=== PATIENT | female | born 1965 | race Asian ===

== ENCOUNTER 2018-03-04 06:59 | Inpatient (IN) | payer OTHER ==
[~2018-03-04] VITALS: Ht 160 cm; Wt 53.0 kg
[2018-03-04] VITALS (23 sets, daily range): BP systolic 99–147; BP diastolic 57–95; PULSE 66–104; RESP 7–22; Ht 160 cm; Wt 53.0 kg
[~2018-03-04 06:59] MED LIST: CEFAZOLIN 1 GM/50 ML (PMX) 50 ML IVPB SCH; SOD CHLORIDE 0.9% 1,000 ML IV ONE
[2018-03-04] MEDS ORDERED: SEVOFLURANE 15 MIN ONE (07:00)
[2018-03-04] MEDS ORDERED: AMPH20TA2 PO (07:29)
[2018-03-04] MEDS ORDERED: ACETAMINOPHEN 500 MG TAB PO STA (09:33)
--- NOTE | 2018-03-04 09:33 | PREAC ---
Date/Time of Note Date/Time of Note DATE: 03/04/18 TIME: 09:32 Anesthesia Eval and Record Evaluation Time Pre-Procedure Interview DATE: 03/04/18 TIME: 09:32 Age 52 Sex female NPO: 8 hrs Preoperative diagnosis Rupture L breast implant Planned procedure Bilateral breast implants removal Past Medical History Past Medical History: Includes Pulm: Smoking Hx Surgery & Anesthesia Issues Hx of PONV Meds Anticoagulation: No Beta Nazanin within 24 hr: No Reason Beta Nazanin not given: Pt. not on B-Nazanin Reported Medications Amphet Dmd-Ahflmt-R-Amphet (Adderall) 20 Mg Tablet, 20 MG PO DAILY, TAB 03/04/18 Current Medications Cefazolin Sodium 50 ml @ 100 mls/hr PRE-OP IVPB ; Start 03/04/18 at 06:00; Stop 03/04/18 at 15:00 Sodium Chloride 1,000 ml @ 75 mls/hr [id number] ONCE IV ; Start 03/04/18 at 06:00; Stop 03/04/18 at 19:19 Meds reviewed: Yes Allergies Coded Allergies: No Known Allergy (Unverified , 03/04/18) Allergies Reviewed: Yes Labs/Studies Labs Reviewed: Reviewed by anesthesiologist Result Diagram: 03/04/18 0820 03/04/18 0820 Laboratory Tests 03/04/18 08:20 test: Negative Studies: CXR (Normal chest radiograph.) Pre-procedure Exam Last vitals Vital Signs Date Temp Pulse Resp B/P (MAP) Pulse Ox O2 O2 Flow FiO2 Time Delivery Rate 03/04/18 98.0 66 18 99/63 (75) 100 08:35 Airway: Adequate mouth opening, Adequate thyromental dist Mallampati: Mallampati II Teeth: Normal Lung: Normal Heart: Normal ASA Physical Status ASA physical status: 2 Emergency: None Planned Anesthetic General/MAC: LMA Pre-operative Attestations Prior to commencing anesthesia and surgery, the patient was re-evaluated, there was verification of: *The patient's identity *The results of appropriate recent lab work and preoperative vital signs *The above evaluation not changing prior to induction *Anesthetic plan, risk benefits, alternative and complications discussed with patient/family; questions answered; patient/family understands, accepts and wishes to proceed. DEZ PARKS Mar 04, 2018 09:33
[2018-03-04] MEDS ORDERED: CEFAZOLIN 1 GM INJ ONE (09:49)
[2018-03-04] MEDS ORDERED: PROPOFOL 40 ML ONE (09:49)
[2018-03-04] MEDS ORDERED: LIDOCAINE 2% (SDV) 5 ML INJ ONE (09:49)
[2018-03-04] MEDS ORDERED: DEXAMETHASONE 4 MG/ML 5 ML INJ ONE (09:50)
[2018-03-04] MEDS ORDERED: ONDANSETRON 4 MG INJ ONE (09:50)
[2018-03-04] MEDS ORDERED: FENTAnyl 50 MCG/ML VIAL ONE ×2 (09:50→12:39)
[2018-03-04] MEDS ORDERED: FAMOTIDINE 20 MG INJ ONE (09:50)
[2018-03-04] MEDS ORDERED: MIDAZOLAM 1 MG/ML 2 ML INJ ONE (09:50)
[2018-03-04] MEDS ORDERED: FENTAnyl 50 MCG/ML VIAL IV PRN ×2 (10:00)
[2018-03-04] MEDS ORDERED: ALBUTEROL 0.083% (NEB) 2.5 MG/3 ML AMP HHN PRN (10:00)
[2018-03-04] MEDS ORDERED: MEPERIDINE 25 MG INJ IV PRN (10:00)
[2018-03-04] MEDS ORDERED: LABETALOL HCL 20MG INJ IV PRN (10:00)
[2018-03-04] MEDS ORDERED: OXYCODONE/ACETAMINOPHEN (5/325) TAB PO PRN ×2 (10:00)
[2018-03-04] MEDS ORDERED: morphine (1 MG/ML) 10ML SYRINGE IV PRN ×2 (10:00)
[2018-03-04] MEDS ORDERED: HYDROmorphONE 1 MG/5 ML IV SYRINGE IV PRN ×2 (10:00)
[2018-03-04] MEDS ORDERED: ONDANSETRON 4 MG INJ IV PRN ×2 (10:00→14:00)
[2018-03-04] MEDS ORDERED: DIPHENHYDRAMINE 50 MG INJ IV PRN (10:00)
[2018-03-04] MEDS ORDERED: EPHEDrine 50 MG INJ ONE (11:47)
[2018-03-04] MEDS ORDERED: PHENYLephrine (100 MCG/ML) 10ML SYG ONE (11:47)
[2018-03-04] MEDS ORDERED: CLINDAMYCIN 900 MG/D5W (PMX) 50 ML IVPB ONE (12:07)
--- NOTE | 2018-03-04 13:11 | NUR ---
PACU: [facility] breast implant removal vss HOB @ semi singh position breathing with ease, bilateral breast dressing dry & intact, denies pain at this time. callled mother over the phone & given updates, Dr. Sesay @ bedside talking to patient, will continue to monitor.
--- NOTE | 2018-03-04 13:21 | PAC ---
Date/Time of Note Date/Time of Note DATE: 03/04/18 TIME: 13:21 Post-Anesthesia Notes Post-Anesthesia Note Last documented vital signs Vital Signs Date Temp Pulse Resp B/P (MAP) Pulse Ox O2 O2 Flow FiO2 Time Delivery Rate 03/04/18 98.0 66 18 99/63 (75) 100 08:35 Activity: WNL Respiratory function: WNL Cardiovascular function: WNL Mental status: Baseline Pain reasonably controlled: Yes Hydration appropriate: Yes Nausea/Vomiting absent: Yes DEZ PARKS Mar 04, 2018 13:21
[2018-03-04] MEDS ORDERED: D5W-0.45 NACL + KCL 20 MEQ 1,000 ML IV SCH (13:34)
--- NOTE | 2018-03-04 13:34 | SIPON ---
Date/Time of Note Date/Time of Note DATE: 03/04/18 TIME: 13:33 Operative Report Preoperative Diagnosis Bilateral rest pain need for bilateral breast implant removal Postoperative Diagnosis Same Operation/Procedure Performed Bilateral breast implant removal Surgeon see signature line speech language assistant Dr Dunn Anesthesia: general Estimated blood loss: 0 - 10 ml's Transfusion Required none Specimen Bilateral breast prostheses Grafts/Implants none Complications none RYAN MARCIAL MD Mar 04, 2018 13:34
[2018-03-04] MEDS ORDERED: morphine 2 MG INJ IV PRN (14:00)
[2018-03-04] MEDS ORDERED: ACETAMINOPHEN 1000MG/100ML IV 100 ML IVPB PRN (14:00)
--- NOTE | 2018-03-04 14:28 | NUR ---
PACU: Transferred patient to Room 412 B via [facility] vss HOB @ semi singh position breathing with ease, bilateral breast dressing dry & intact w/ Bias wrap around chest, denies pain, Report given to RUBEN Mcmanus
[2018-03-04] MEDS ORDERED: CEPASTAT LOZENGE MT PRN (17:30)
[2018-03-04] MEDS ORDERED: HYDROCODONE/APAP (5/325) TAB PO PRN (17:30)
--- NOTE | 2018-03-04 18:58 | NUR ---
RN EOSS: PATIENT BEEN STABLE ON MY SHIFT. V/S-WNL, NO C/O PAIN , ALL CONCERNS AND QUESTIONS ADDRESSED, ASSISTED FOR BRP NEEDED, HOURLY ROUNDING MAINTAINED, FALL PRECAUTIONS OBSERVED. CALL LIGHT AND BEDSIDE TABLE WITHIN REACH. WILL ENDORSE PLAN OF CARE TO ONCOMING RN.
--- NOTE | 2018-03-04 19:40 | RADRPT ---
Vent Rate: 62 bpm RR Interval: 0 msec TX Interval: 148 msec QRS Duration: 80 msec QT Interval: 468 msec QTC Interval: 475 msec P-R-T [place]: 61 - 81 - 74 degrees Normal sinus rhythm Possible Left atrial enlargement Anteroseptal infarct , age undetermined Abnormal ECG Electronically Signed By: Dmitriy Manley [id number]
--- NOTE | 2018-03-04 20:45 | OPR ---
DATE OF OPERATION: 03/04/2018 PREOPERATIVE DIAGNOSIS: Severe bilateral breast pain, need for bilateral breast implant removal. POSTOPERATIVE DIAGNOSIS: Severe bilateral breast pain, need for bilateral breast implant removal. PROCEDURE: Bilateral breast implant removal. ANESTHESIA: General. ANESTHESIOLOGIST: Nurse box spinner, Anny Pringle NP. SURGEON: Gregorio Sesay MD. ANODE CREW SUPERVISOR: Joaquín Dunn MD. INDICATIONS FOR PROCEDURE: The patient is a 52-year-old female, who presented with severe bilateral breast pain. Of note, she had previous breast implants twice before. MRI demonstrated evidence of p robable rupture on the right side and also the encapsulation. Based on this, she requested removal o f the implant. She consented and was scheduled for surgery. DESCRIPTION OF PROCEDURE: The patient was brought to the operating theater, placed under general ane sthesia. The breasts were prepped and draped bilaterally in the usual sterile fashion. Attention wa s first directed to the right side. A periareolar incision was made from the 9 o'clock location thro ugh the 12 o'clock location to the 3 o'clock location. Subcutaneous tissue was dissected with cauter y until the capsule surrounding implant was identified. The capsule was incised for a distance of 3 to 4 cm. The implant was then gently removed with a gloved finger. It was sent for permanent pathol ogic analysis. The wound was irrigated. Minimal bleeding was controlled with cautery. The incision was then closed with deep dermal layer of 4-0 Vicryl sutures, followed by final skin approximation w ith 5-0 PDS sutures in subcuticular fashion. Attention was then directed to the left side. Again, a periareolar incision was made from approximately the 9 o'clock location through the 12 o'clock locat ion to the 3 o'clock location. Subcutaneous tissue was dissected with cautery until the capsule was identified. The capsule was incised for a length of 3 to 4 cm and the implant was then gently remove d with a gloved finger. The wound was irrigated. Minimal bleeding was controlled with cautery. Ski n was then reapproximated with deep dermal layer of 4-0 Vicryl sutures, followed by final skin approx imation with 5-0 PDS sutures in subcuticular fashion, and Dermabond was applied to both incisions. T he patient tolerated the procedure well. Total blood loss was less than 10 mL. There were no compli cations and the patient was transported in stable condition to the recovery room where circumferentia l compression dressing was applied. Dictated By: GREGORIO SESAY MD TL/SEJAL Conf#: [id number] DID#: [id number] CC: MAX MCGUIRE MD;*EndCC*
--- NOTE | 2018-03-04 21:47 | HP ---
DATE OF ADMISSION: 03/04/2018 CHIEF COMPLAINT: chest wall pain HISTORY OF PRESENT ILLNESS: The patient is a 52-year-old female with history of attention deficit disorder who had bilateral breast implants placed 7 years ago and was complaining of discomfort and therefore was seen by Dr. Marcial as an outpatient. The patient underwent bilateral breast implant removal today. The patient has significant postoperative pain and is being admitted for further evaluation and management. The patient also has postoperative throat discomfort. Denies any shortness of breath. No history of nausea, vomiting, no history of leg pain. No history of paresthesias. The rest of the review of systems unremarkable. PAST SURGICAL HISTORY: As stated above. ALLERGIES: NO KNOWN ALLERGIES. SOCIAL HISTORY: The patient occasionally smokes. No alcohol abuse. MEDICATIONS: The patient was taking Adderall as an outpatient, but is requesting but does not want to take it while in the hospital. FAMILY HISTORY: Noncontributory. PHYSICAL EXAMINATION: GENERAL: Awake, alert, fairly oriented. VITAL SIGNS: Temperature 98, pulse 66, respiration 18, blood pressure 99/63, O2 saturation 100% on room air. HEENT: No eye discharge or redness. Conjunctivae are normal. Nose normal. NECK: No mass. CHEST: Fairly clear. CARDIOVASCULAR: S1, S2 normal. ABDOMEN: Soft, nondistended, nontender. EXTREMITIES: No leg edema. NEUROLOGIC: The patient is awake, alert with no gross focal deficit. LABORATORY DATA: WBC 7, hemoglobin 13.6, platelet 227. Chemistry unremarkable. IMPRESSION: 1. Bilateral breast pain secondary to bilateral breast implants, status post implant removal. 2. Attention deficit disorder. PLAN: The patient admitted on medical floor. The patient started on clear liquid diet, will be advanced as tolerated. The patient will be given Tylenol, Clemons and IV morphine for pain control. Continue IV fluid. We will use SCD for DVT prophylaxis. The patient will continue Adderall as an outpatient. Will add Cepastat lozenges for throat discomfort due to recent intubation. Dictated By: MAX MARR/SEJAL Conf#: [id number] DID#: [id number] CC: RYAN MARCIAL MD;*EndCC* MTDD
[2018-03-05 02:00] VITALS: BP 123/72; PULSE 96; RESP 18
--- NOTE | 2018-03-05 05:48 | NUR ---
EOSS: Alert, oriented, breathing even and unlabored, ambulatory with steady gait. 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 Bilateral nipples clean and dry, bias dressing intact. c/o pain X1, given [place] with help, pt able to sleep comfortably. To continue with current plan of care.
[2018-03-05 07:28] VITALS: BP 92/46; PULSE 73; RESP 20
[2018-03-05] MEDS ORDERED: morphine LIQ (10 MG/5 ML) CUP PO PRN (15:00)
--- NOTE | 2018-03-05 15:08 | PDOCDIS ---
Discharge Instructions CONDITION [id number] Patient Condition: [id number] Stable HOME CARE INSTRUCTIONS: [id number] Diet Instructions: [id number] Regular ACTIVITY: [id number] Activity Restrictions: [id number] Slowly Increase Activity Rest between Activity Avoid heavy lifting No Sexual Activity [id number] Bathing Restrictions: [id number] Sponge Bath FOLLOW UP/APPOINTMENTS Follow-up Plan - FU wit PMD x 1 week; check with PMD to cont about Adderall - FU with surgery as recommended - Call 911 or go to the nearest hospital if symptoms get worse - Patient verbalized understanding . Plan dw Dr Larson/ staff MANDY GARCIA Mar 05, 2018 15:08
[2018-03-05 15:09] VITALS: BP 121/56; PULSE 69; RESP 20
[2018-03-05] MEDS ORDERED: DOCU-144 PO (15:14)
[2018-03-05] MEDS ORDERED: HYDR-3601 PO (15:14)
--- NOTE | 2018-03-05 16:00 | NUR ---
no flu vaccine on unit, call pharmacy to deliver. Volunteer office not answering phone, pharmacy sent with [address]. Tor wants to leave and does not want to wait for medication to be delivered unless it can be done soon. Unit volunteer sent to pickling machine operator from runner.
--- NOTE | 2018-03-05 16:40 | NUR ---
DISCHARGE NOTE REVIEWED DISCHARGE PACKET, ALL QUESTIONS ANSWERED, PAPERWORK SIGNED. PATIENT AWARE TO WEAR BIAS WRAP UNTIL THURSDAY, THEN SHE MAY REMOVE AND SHOWER. EDUCATED ON SIGNS AND SYMPTOMS OF INFECTION. NO IV ACCESS. PATIENT AHS FOLLOW UP SCHEDULED WITH DR. MARCIAL AND WILL CALL IF SHE HAS CONCERNS PRIOR TO 03/24 FOLLOW UP. PATIENT CONFIRMED SHE HAD ALL BELONGINGS. REQUESTED TO AMBULATE OUT OF HOSPITAL, REFUSED WHEELCHAIR. ESCORTED BY PELLET POST INSPECTOR.
== END 2018-03-05 16:30 | disposition home or self-care (01) | DRG 909 ==
LOC: REC 06:59 → MS1 14:26
PROVIDERS: ADMIT Surgery Surgical Oncology; ATTEND Surgery Surgical Oncology
PROC: 0HPT0JZ Removal of Synthetic Substitute from Right Breast, Open Approach (ICD-10-PCS; 2018-03-04)
PROC: 0HPU0JZ Removal of Synthetic Substitute from Left Breast, Open Approach (ICD-10-PCS; principal; 2018-03-04 10:30)
DX: T85.848A Pain due to other internal prosthetic devices, implants and grafts, initial encounter (principal); N64.4 Mastodynia; F98.8 Other specified behavioral and emotional disorders with onset usually occurring in childhood and adolescence
CPT/HCPCS: 71045; 80053; 84703; 85025; 85610; 85730; 88300; 93005; J0690; J1100; J2250; J2370; J2405; J3010; J3480; J7030